=== PATIENT | male | born 1985 | race Caucasian/White ===

== ENCOUNTER 2023-10-19 09:42 | Outpatient (CLI) | payer OTHER, SELFPAY | END 2023-10-19 09:43 | disposition home or self-care (01) | LOC: NFLDREF 10-24 07:51 | PROVIDERS: Visit Provider Physician Assistant | DX: R19.7 Diarrhea, unspecified (principal) | CPT/HCPCS: 87045; 87046; 87147; 87177; 87209; 87427 ==